=== PATIENT | female | born 1970 | race Caucasian/White ===

== ENCOUNTER 2024-10-18 13:50 | Emergency (ER) | payer OTHER, SELFPAY ==
[2024-10-18 13:52] VITALS: BP 121/80; PULSE 79; RESP 18; TEMP 36.6; O2SAT 97
--- NOTE | 2024-10-18 14:26 | ED_ITS ---
HPI - URI/Sore Throat General Chief Complaint: Upper Respiratory Infection Stated Complaint: migraine, congestion Time Seen by Provider: 10/18/24 14:26 Source: patient Mode of arrival: ambulatory Limitations: no limitations History of Present Illness HPI Narrative: 53-year-old female with a history of dyslipidemia, bipolar, migraines, chronic sinusitis presents to the ED with -- frontal headache since 5:00 a.m.. The patient has had nausea without any vomiting. The patient has photophobia. No phonophobia. This is similar to her usual headaches. -- Nasal congestion with mucopurulent nasal discharge. The patient received antibiotics 1 month ago. She received Augmentin. MD elicited complaint: other ( Headache, nasal contusion) Onset (ago): hour(s) ( 8 hours) Consistency: constant Severity: moderate Description of mucous: yellow Able to tolerate fluids by mouth: Yes Exacerbating factors: nothing Relieving factors: nothing Associated symptoms: denies other symptoms and nasal congestion Treatments prior to arrival: none Related Data Home Medications Medication Instructions Recorded Confirmed Last Taken Type clonazepam 0.5 mg tablet (Klonopin) 0.5 mg PO TID PRN anxiety 10/18/24 10/18/24 Unknown History clonazepam 1 mg tablet (Klonopin) 1 mg PO DAILY 10/18/24 10/18/24 Unknown H istory duloxetine 60 mg capsule,delayed 120 mg PO DAILY 10/18/24 10/18/24 Unknown History release estradiol 0.1 mg/24 hr semiweekly 1 patch transdermal 2XW 10/18/24 10/18/24 Unknown History transdermal patch (Vivelle-Dot) ezetimibe 10 mg tablet 10 mg PO DAILY 10/18/24 10/18/24 Unknown History lamotrigine 150 mg tablet 150 mg PO BID 10/18/24 10/18/24 Unknown History (Lamictal) pravastatin 40 mg tablet 40 mg PO DAILY 10/18/24 10/18/24 Unknown History topiramate 100 mg tablet (Topamax) 100 mg PO DAILY 10/18/24 10/18/24 Unknown History Allergies Allergy/AdvReac Type Severity Reaction Status Date / Time ciprofloxacin Allergy Intermediate Rash Verified 10/18/24 14:13 vancomycin Allergy Intermediate burning Verified 10/18/24 14:13 acetaminophen (From Vicodin) Allergy Mild Rash Verified 10/18/24 14:13 codeine Allergy Mild rash Verified 10/18/24 14:13 hydrocodone (From Vicodin) Allergy Mild Rash Verified 10/18/24 14:13 latex Allergy Mild Rash Verified 10/18/24 14:13 Review of Systems Review of Systems: All systems reviewed & are unremarkable except as noted in HPI and below Constitutional: Constitutional: Reports as per HPI and Reports no additional constitutional complaints Eyes: Eyes: Reports as per HPI and Reports no additional eye complaints ENT: Reports system reviewed and no additional complaints, except as documented, Reports as per HPI and Reports nasal congestion Cardiovascular: Cardiovascular: Reports as per HPI and Reports no additional cardiovascular complaints Respiratory: Respiratory: Reports as per HPI and Reports no additional respiratory complaints Gastrointestinal: Gastrointestinal: Reports as per HPI and Reports no additional gastrointestinal complaints Genitourinary: Genitourinary: Reports no additional female genitourinary complaints and Reports as per HPI Musculoskeletal: Musculoskeletal: Reports no additional musculoskeletal complaints and Reports as per HPI Integumentary/Breasts: Skin/Breast: Reports system reviewed and no additional complaints, except as docu and Reports as per HPI Neurologic: Reports system reviewed and no additional complaints, except as documented and Reports as per HPI Psychiatric: Psychiatric: Reports no additional psychiatric complaints and Reports as per HPI Endocrine: Endocrine: Reports no additional endocrine complaints and Reports as per HPI Hematologic/Lymphatic: Hematologic/Lymphatic: Reports no additional hematolo gic/lymphatic complaints and Reports as per HPI Allergic/Immunologic: Allergic/Immunologic: Reports no additional allergic/immunologic complaints and Reports as per HPI Exam Narrative: afebrile. Vitals are stable. Const: General: no acute distress Nutritional Appearance: well nourished Orientation/consciousness: patient oriented x3 Limitations: no limitations HENMT: Head: normal to inspection Ears: external ears normal Face/Nose/Sinus: Normal external nose present Face and sinus: normal facial exam Mouth: Yes Normal oral and palatal mucosa present Throat: posterior oropharynx normal Eyes: Pupils: Equal, round and reactive pupils present EOM: EOMs intact bilaterally Direct Ophthalmoscopy: no photophobia Neck: Neck: normal visual inspection, no lymphadenopathy and no meningeal signs Chest: Chest palpation & inspection: normal inspection of the chest Resp: Effort & Inspection: normal respiratory effort Auscultation: clear to auscultation bilaterally Cardio: Rate: regular rate Rhythm: regular rhythm GI: GI Palp: Yes Soft to palpation Auscultation: normal bowel sounds Other: Tenderness/rigidity /rebound : General: Yes no CVA tenderness Back/Spine/Pelvis: Back: no CVA tenderness Skin: General skin exam: normal color Rashes: no rashes Wounds: no wounds Neuro: General: patient oriented x3, moves all extremities, no meningeal signs, no focal motor deficits and CN's II-XI intact bilaterally Cranial nerves: Yes Nystagmus not present Speech: normal speech Gait exam (Neuro): Normal gait present Extrem: General: normal to inspection and no clubbing, cyanosis or edema Psych: Mental Status: mental status grossly normal Affect: normal affect Attitude: cooperative Course Course Emergency Course: frontal headache /migraine-- Improved with sumatriptan. Headache decreased from 10 to 4 sinusitis with mucopurulent nasal discharge and nasal congestion-- will treat with zithromax Vital Signs Vital signs: Vital Signs Temperature 36.6 C 10/18/24 13:52 Pulse Rate 79 10/18/24 13:52 Respiratory Rate 18 10/18/24 13:52 Blood Pressure 121/80 10/18/24 13:52 Pulse Oximetry 97 10/18/24 13:52 Oxygen Delivery Room Air 10/18/24 13:52 Temperature 36.6 C 10/18/24 13:52 Pulse Rate 79 10/18/24 13:52 Respiratory Rate 18 10/18/24 13:52 Blood Pressure 121/80 10/18/24 13:52 Pulse Oximetry 97 10/18/24 13:52 Oxygen Delivery Room Air 10/18/24 14:00 MDM - URI/Sore Throat MDM Narrative Medical decision making narrative: migraine sinusitis Differential Diagnosis Differential diagnosis: Likely upper respiratory infection and sinusitis Medical Records Attestation: I reviewed the patient's medical records. Lab Data Attestation: I reviewed the patient's lab results. Discharge Plan Discharge Clinical Impression: Sinusitis, Migraine Patient Disposition: Home Condition: Stable Instructions: Antibiotic Form, Sinusitis (ED), Migraine Headache (ED) Patient Language: Belarusian Prescriptions: New azithromycin [Zithromax] 250 mg tablet See Rx Instructions .ROUTE .COMPLEX Qty: 6 0RF Rx Instructions: For 250 mg dose pack: take 500 mg today (day 1), then 250 mg for 4 days (days 2-5) loratadine [Claritin] 10 mg tablet 10 mg PO DAILY Qty: 30 0RF No Action pravastatin 40 mg tablet 40 mg PO DAILY ezetimibe 10 mg tablet 10 mg PO DAILY duloxetine 60 mg capsule,delayed release(DR/EC) 120 mg PO DAILY lamotrigine [Lamictal] 150 mg tablet 150 mg PO BID clonazepam [Klonopin] 1 mg tablet 1 mg PO DAILY clonazepam [Klonopin] 0.5 mg tablet 0.5 mg PO TID PRN (Reason: anxiety) topiramate [Topamax] 100 mg tablet 100 mg PO DAILY estradiol [Vivelle-Dot] 0.1 mg/24 hr patch semiweekly 1 patch transdermal 2XW Patient Comments: change on wednesday and Rx Instructions: apply 1 patch for 3 days alternating with 1 patch for 4 days each week for 3 wks per 4-wk cycle Follow-up/Referrals: UNKNOWN,DOCTOR [Primary Care Provider] - Stand Alone Forms: Work/School Release IP Time of Disposition: 15:13
[2024-10-18] MEDS: SUMAtriptan SUCCINATE 6 MG/0.5 ML VIAL SUB-Q (14:45)
--- OUTSIDE RECORDS SUMMARY | 2024-10-18 15:11 | XMS_ITS | Encounter Summary ---
Author Organization [facility] Address [facility] [place] [address] Care Team Providers Care Glass Washer Name Role Phone Navi Wheeler MD Primary Care Provider Unava Qing Jensen PA-C Unavailable [phone] Lamonte Quezada MD Unavailable Unavailabl e Piper Sotomayor MD Unavailable + Gabe Hidalgo MD Primary Care Provider + [phone] Gabe Hidalgo MD Primary Care Provider + [phone] Wing Madden MD Primary Care Provider [phone] Cary Allen NP Primary Care Provider [phone] Encounter Details Date Type Department Care Team (Late st Contact Info) Description 05/23/2018 Abstract [facility] Neuro[facility] [address] [place] [phone] Villa Hopper MD [address] [place] [id number] Social History Tobacco Use Types Packs/Day Years Used Date Smoking Tobacco: Never Smokeless Tobacco: Never Comments Unknown Sex and Gender Information Value Date Recorded Sex Assigned at Not on file Legal Sex Female 10:45 PM CUTTING MACHINE TENDER HELPER Gender Identity Not on file Sexual Orientation Not on file documented as of this encounter Plan of Treatment Not on file documented as of this encounter Visit Diagnoses Not on filedocumented in this encounter Additional Health Concerns Infection Onset Date Last Indicated Resolved Time COVID-19 Rule Out 01/08/2020 01/08/2020 01/11/2020 7:30 PM CDT COVID-19 Rule Out 03/18/2020 03/18/2020 03/20/2020 6:41 PM CDT COVID-19 Rule Out 12/09/2020 12/09/2020 12/10/2020 1:42 PM CDT COVID-19 Rule Out 02/19/2021 02/19/2021 02/20/2021 12:12 AM CDT COVID-19 Rule Out 05/19/2022 05/19/2022 05/19/2022 11:26 AM CUTTING MACHINE TENDER HELPER COVID-19 Rule Out 05/19/2022 05/19/2022 05/20/2022 1:15 AM CUTTING MACHINE TENDER HELPER documented as of this encounter Care Teams Glass Washer Relationship Specialty Start Date End Date Navi Wheeler MD PCP - General FAMILY PRACTICE 03/04/18 12/01/20 Gabe Hidalgo MD [address] [place] [address] PCP - General FAMILY PRACTICE 12/05/20 07/27/22 Gabe Hidalgo MD [address] [place] [address] PCP - General FAMILY PRACTICE 12/02/20 12/04/20 Wing Madden MD [address] [place] [phone] PCP - General FAMILY PRACTICE 07/28/22 11/05/23 Cary Allen NP [address] [place] [address] PCP - General Nurse Practitioner Family 11/06/23 Qing Carrion PA-C PHYSICIAN DIVISION DIRECTOR 07/26/19 Lamonte Quezada MD [place] Python Engineer CARDIOVASCULAR DISEASE 07/02/20 Piper Sotomayor MD [address] [address] Consulting Physician Child and Adolescent Psychiatry 07/02/20 documented as of this encounter
--- OUTSIDE RECORDS SUMMARY | 2024-10-18 15:11 | XMS_ITS | Encounter Summary ---
Author Organization [facility] Address [address] [place] [address] Care Team Providers Care Grinder Set Up Operator Thread Name Role Phone Carrion, Qing Kelley PA-C Unavailable [phone] Lamonte Quezada MD Unavailable Unavailabl e Piper Sotomayor MD Unavailable + Wing Madden MD Primary Care Provider [phone] Cary Allen NP Primary Care Provider [phone] Encounter Details Date Type Department Care Team (Late st Contact Info) Description 12/02/2022 MyChart Message Enc [facility] - [facility] [address] [place] [address] [place], [facility] Provider Air Quality Message Social History Tobacco Use Types Packs/Day Years Used Date Smoking Tobacco: Never Smokeless Tobacco: Never Comments:non smoker Alcohol Use Standard Drinks/Week Comments No 0 (1 standard drink = 0.6 oz pur e alcohol) AUDIT-C Answer Date Recorded Frequency of Alcohol Consumption Not on file 08/30/2020 Average Number of Drinks Not on file 021 Q3: How often do you have si x or more drinks on one occasion? Never 08/30/2020 PHQ-2 Answer Date Recorded Patient Health Questionnaire-2 Score 0 09/25/2022 Comments No Sex and Gender Information Value Date Recorded Sex Assigned at Not on file Legal Sex Female 10:45 PM LIE DETECTOR OPERATOR Gender Identity Not on file Sexual Orientation Not on file Occupation Industry Job Start Date Job End Date [employer], worked at [employer], student Not on file Not on file Not on file documented as of this encounter Plan of Treatment Not on file documented as of this encounter Visit Diagnoses Not on filedocumented in this encounter Additional Health Concerns Assessment Noted Time PHQ-9 Depression Total Score: 0 07/16/19 22 2:44 PM LIE DETECTOR OPERATOR documented as of this encounter Care Teams Grinder Set Up Operator Thread Relationship Specialty Start Date End Date Wing Madden MD [address] [place] [phone] PCP - General FAMILY PRACTICE 07/28/22 11/05/23 Cary Allen NP [address] [place], [place] [phone] PCP - General Nurse Practitioner Family 11/06/23 Qing Carrion PA-C PHYSICIAN LOCKS TENDER 07/26/19 Lamonte Quezada MD [place] Stress Engineer CARDIOVASCULAR DISEASE 07/02/20 Piper Sotomayor MD [address] [id number] Consulting Physician Child and Adolescent Psychiatry 07/02/20 documented as of this encounter
--- OUTSIDE RECORDS SUMMARY | 2024-10-18 15:11 | XMS_ITS | Encounter Summary ---
Author Organization [facility] Address [facility] [place] [address] Care Team Providers Care Rib Knitter Name Role Phone Navi Wheeler MD Primary Care Provider Unava Qing Jensen PA-C Unavailable [phone] Lamonte Quezada MD Unavailable Unavailabl e Piper Sotomayor MD Unavailable + Gabe Hidalgo MD Primary Care Provider + [phone] Gabe Hidalgo MD Primary Care Provider + [phone] Wing Madden MD Primary Care Provider [phone] Cary Allen NP Primary Care Provider [phone] Encounter Details Date Type Department Care Team (Late st Contact Info) Description 05/11/2018 Abstract [facility] Neuro[facility] [address] [place] [phone] Villa Hopper MD [address] [place] [address] Social History Tobacco Use Types Packs/Day Years Used Date Smoking Tobacco: Never Assessed Comments Unknown Sex and Gender Information Value Date Recorded Sex Assigned at Not on file Legal Sex Female 10:45 PM WATER FILTRATION TECHNICIAN Gender Identity Not on file Sexual Orientation [...] Rule Out 05/19/2022 05/19/2022 05/19/2022 11:26 AM WATER FILTRATION TECHNICIAN COVID-19 Rule Out 05/19/2022 05/19/2022 05/20/2022 1:15 AM WATER FILTRATION TECHNICIAN documented as of this encounter Care Teams Rib Knitter Relationship Specialty Start Date End Date Navi Wheeler MD PCP - General FAMILY PRACTICE 03/04/18 12/01/20 Gabe Hidalgo MD [address] [place] [address] PCP - General FAMILY PRACTICE 12/05/20 07/27/22 Gabe Hidalgo MD [address] [place] [address] PCP - General FAMILY PRACTICE 12/02/20 12/04/20 Wing Madden MD [address] [place] [phone] PCP - General FAMILY PRACTICE 07/28/22 11/05/23 Cary Aleln NP [address] [place] [address] PCP - General Nurse Practitioner Family 11/06/23 Qing Carrion PA-C PHYSICIAN VIDEO GAME ANIMATOR 07/26/19 Lamonte Quezada MD [place] Senior Structural Engineer CARDIOVASCULAR DISEASE 07/02/20 Piper Sotomayor MD [address] [address] Consulting Physician Child and Adolescent Psychiatry 07/02/20 documented as of this encounter
--- OUTSIDE RECORDS SUMMARY | 2024-10-18 15:11 | XMS_ITS | Encounter Summary ---
Author Organization [facility] Address [facility] [place] [address] Care Team Providers Care Diesel Technology Instructor Name Role Phone Navi Wheeler MD Primary Care Provider Unava Qing Jensen PA-C Unavailable [phone] Lamonte Quezada MD Unavailable Unavailabl e Piper Sotomayor MD Unavailable + Gabe Hidalgo MD Primary Care Provider + [phone] Gabe Hidalgo MD Primary Care Provider + [phone] Wing Madden MD Primary Care Provider [phone] Cary Allen NP Primary Care Provider [phone] Encounter Details Date Type Department Care Team (Late st Contact Info) Description 08/21/2017 Abstract [facility] [address] [place] [address] , Generic Conversion, Social History Tobacco Use Types Packs/Day Years Used Date Smoking Tobacco: Never Assessed Comments Unknown Sex and Gender Information Value Date Recorded Sex Assigned at Not on file Legal Sex Female 10:45 PM LEAK GANG SUPERVISOR Gender Identity Not on file Sexual Orientation [...] Rule Out 05/19/2022 05/19/2022 05/19/2022 11:26 AM LEAK GANG SUPERVISOR COVID-19 Rule Out 05/19/2022 05/19/2022 05/20/2022 1:15 AM LEAK GANG SUPERVISOR documented as of this encounter Care Teams Diesel Technology Instructor Relationship Specialty Start Date End Date Navi Wheeler MD PCP - General FAMILY PRACTICE 03/04/18 12/01/20 Gabe Hidalgo MD [address] [place] [address] PCP - General FAMILY PRACTICE 12/05/20 07/27/22 Gabe Hidalgo MD [address] [place] [address] PCP - General FAMILY PRACTICE 12/02/20 12/04/20 Wing Madden MD [address] [place] [phone] PCP - General FAMILY PRACTICE 07/28/22 11/05/23 Cary Allen GUM MACHINE FILLER [address] [place] [address] PCP - General Nurse Practitioner Family 11/06/23 Qing Carrion PA-C PHYSICIAN HOP GROWER 07/26/19 Lamonte Quezada MD [place] Neurocritical Care Physician CARDIOVASCULAR DISEASE 07/02/20 Piper Sotomayor MD [address] [address] Consulting Physician Child and Adolescent Psychiatry 07/02/20 documented as of this encounter
--- OUTSIDE RECORDS SUMMARY | 2024-10-18 15:11 | XMS_ITS | Encounter Summary ---
Author Organization [facility] Address [address] [place] [address] Care Team Providers Care Croze Machine Operator Name Role Phone CarrionQing le DARIELA Unavailable [phone] Lamonte Quezada MD Unavailable Unavailabl e Piper Sotomayor MD Unavailable + Wing Madden MD Primary Care Provider [phone] Cary Allen NP Primary Care Provider [phone] Encounter Details Date Type Department Care Team (Late st Contact Info) Description 12/31/2022 Abstract [facility] [address] [place] [address] Lamonte Quezada MD Social History Tobacco Use Types Packs/Day Years Used Date Smoking Tobacco: Never Smokeless Tobacco: Never Tobacco Cessation:Counseling Given: Not Answered Comments:non smoker Alcohol Use Standard Drinks/Week Comments [...] on file Legal Sex Female 10:45 PM ARTILLERY METEOROLOGICAL MAN Gender Identity Not on file Sexual Orientation Not on file 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 Industry Job 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 Date Job End 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, 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 Not on file Not on file Not on file documented as of this encounter Plan of Treatment Not on file documented as of this encounter Visit Diagnoses Not on filedocumented in this encounter Additional Health Concerns Assessment Noted Time PHQ-9 Depression Total Score: 0 07/16/19 22 2:44 PM ARTILLERY METEOROLOGICAL MAN documented as of this encounter Care Teams Croze Machine Operator Relationship Specialty Start Date End Date Wing Madden MD [address] [place] [address] PCP - General FAMILY PRACTICE 07/28/22 11/05/23 [place] [address] [place] [id number] PCP - General Nurse Practitioner Family 11/06/23 Qing Carroin PA-C PHYSICIAN NURSERY TECHNICIAN 07/26/19 Lamonte Quezada MD [place] Live Truck Technician CARDIOVASCULAR DISEASE 07/02/20 Piper Sotomayor MD [address] [phone] Consulting Physician Child and Adolescent Psychiatry 07/02/20 documented as of this encounter
--- OUTSIDE RECORDS SUMMARY | 2024-10-18 15:11 | XMS_ITS | Referral Summary ---
Author Organization [facility] Address [address] [place] [id number] Care Team Providers Care Vigoureux Printer Name Role Phone Chen Thomason MD Primary Care Provider [phone] Allergies Active Allergy Reactions Criticality Noted Date Comments Ciprofloxacin Rash Medium 03/13/2020 Codeine Rash Medium 03/26/2017 Latex Rash Medium 04/20/2016 Metaxalone Unknown 10/18/2006 Nitrofurantoin Itching Medium 12/25/2019 Sulfa (Sulfonamide Antibiotics) Rash Medium 10/18/2006 Vancomycin Unknown,Other (See comments) Low 04/11/2012 Siren like veins were burning Venom-Honey Bee Anaphylaxis High 11/25/2023 Medications albuterol HFA (PROVENTIL HFA,VENTOLIN HFA,PROAIR HFA) 90 mcg/actuation inhaler 2 puffs every 6 (six) hours as needed 1 Active cholecalciferol (VITAMIN D-3) 2000 unit tablet Take 1 tablet (2,000 Units total) by mouth Active clonazePAM (KlonoPIN) 0.5 mg tablet Take 1 tablet (0.5 mg total) by mouth every morning [address] (CYMBALTA) 30 mg capsule Take 1 capsule (30 mg total) by mouth every morning Active DULoxetine DR (CYMBALTA) 60 mg capsule Take 1 capsule (60 mg total) by mouth every morning 1 Active EPINEPHrine 0.3 mg/0.3 mL auto-injection syringe Inject 0.3 mL (0.3 mg total) into the muscle as instructed as needed 1 Active estradioL (VIVELLE-DOT) 0.1 mg/[address] ONE PATCH ONTO THE SKIN TWICE A WEEK 1 Active estradioL (ESTRACE) 0.01 % (0.1 mg/gram) vaginal cream Apply a pea-sized amount around the vagina. For the first 2 weeks, apply every night. Thereafter apply 3 times a week 1 Active ezetimibe (ZETIA) 10 mg tablet Take 1 tablet (10 mg total) by mouth daily 1 Active lamoTRIgine (LaMICtal) 150 mg tablet Take 1 tablet (150 mg total) by mouth 2 (two) times a day 1 Active levocetirizine (XYZAL) 5 mg tablet TAKE ONE TABLET BY MOUTH UP TO THREE TIMES DAILY NEEDED FOR FOR HIVES - NEED FOLLOW UP WITH PRESCRIBING DOCTOR PRIOR TO FUTHER REFILLS 2 Active pravastatin (PRAVACHOL) 40 mg tablet Take 1 tablet (40 mg total) by mouth daily 1 Active rizatriptan (MAXALT) 10 mg tablet take 1 tablet by mouth at onset of migraine. May repeat in 2 hours if needed 4 Active topiramate (TOPAMAX) 100 mg tablet Take 1 tablet twice a day by oral route. 4 Active topiramate (TOPAMAX) 50 mg tablet Take 2 tablets (100 mg total) by mouth nightly 1 Active Active Problems No known active problems Social History Tobacco Use Types Packs/Day Years Used Date Smoking Tobacco: Never Smokeless Tobacco: Never Tobacco Cessation:Counseling Given: Not Answered Personal Safety Answer Date Recorded Getting School Help Needed Not on file 08/12 Comments No Sex and Gender Information Value Date Recorded Sex Assigned at Not on file Legal Sex Female 10:48 AM WARP HANGER Gender Identity Not on file Sexual Orientation Not on file Last Filed Vital Signs Vital Sign Reading Time Taken Comments Blood Pressure 120/73 12/21/2023 1:06 PM CDT Pulse - - Temperature - - Respiratory Rate - - Oxygen Saturation - - Inhaled Oxygen Concentration - - Weight 89.9 kg (198 lb 3.2 oz) 12/21/2023 1:06 P M CDT Height 162.6 cm (5' 4 ) 12/21/2023 1:06 PM CDT Body Mass Index 34.02 12/21/2023 1:06 PM CDT Plan of Treatment Not on file Insurance [facility] Care Teams Vigoureux Printer Relationship Specialty Start Date End Date Chen Thomason MD [address] [address] PCP - General Obstetrics and Gynecology 08/13/23
--- OUTSIDE RECORDS SUMMARY | 2024-10-18 15:11 | XMS_ITS | Encounter Summary ---
Author Organization [facility] Address [facility] [place] [address] Care Team Providers Care Dog Hair Clipper Name Role Phone Qing Carrion PA-C Unavailable [phone] Lamonte Quezada MD Unavailable Unavailabl e Piper Sotomayor MD Unavailable + Wing Madden MD Primary Care Provider [phone] Cary Allen NP Primary Care Provider [phone] Encounter Details Date Type Department Care Team (Late st Contact Info) Description 11/03/2023 Jini Message Enc [facility] Medical [address] [address] Dick, [facility] Provider 11/09/23 Appointment Cancelled Social History Tobacco Use Types Packs/Day Years Used Date Smoking Tobacco: Never Passive Smoke Exposure: Never Smokeless Tobacco: Never Comments:non smoker Alcohol [...] Date Recorded Patient Health Questionnaire-2 Score 0 06/15/2023 Comments No Sex and Gender Information Value Date Recorded Sex Assigned at Not on file Legal Sex Female 10:45 PM HANDBAG FINISHER Gender Identity Not on file Sexual Orientation Not on file Occupation Industry Job 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 Job End 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, 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 Not on file Not on file Not on file documented as of this encounter Plan of Treatment Not on file documented as of this encounter Visit Diagnoses Not on filedocumented in this encounter Additional Health Concerns Assessment Noted Time PHQ-9 Depression Total Score: 0 07/16/19 22 2:44 PM HANDBAG FINISHER documented as of this encounter Care Teams Dog Hair Clipper Relationship Specialty Start Date End Date Wing Madden MD [address] [place] [id number] PCP - General FAMILY PRACTICE 07/28/22 11/05/23 Cary Allen NP [address] [place] [address] PCP - General Nurse Practitioner Family 11/06/23 Qing Carrion PA-C PHYSICIAN BED PLACEMENT COORDINATOR 07/26/19 Lamonte Quezada MD [place] Front Desk Admin CARDIOVASCULAR DISEASE 07/02/20 Piper Sotomayor MD [address] [address] Consulting Physician Child and Adolescent Psychiatry 07/02/20 documented as of this encounter
--- OUTSIDE RECORDS SUMMARY | 2024-10-18 15:11 | XMS_ITS | Encounter Summary ---
Author Organization [facility] Address [facility] [place] [address] Care Team Providers Care International Flight Attendant Name Role Phone Qing Carrion PA-C Unavailable [phone] Lamonte Quezada MD Unavailable Unavailabl e Piper Sotomayor MD Unavailable + Wing Madden MD Primary Care Provider [phone] Cary Allen NP Primary Care Provider [phone] Encounter Details Date Type Department Care Team (Late st Contact Info) Description 10/22/2022 [employer] Message Enc [facility] Medical [address] [address] [place], [facility] Provider Need to reschedule appt on 02/18/23 Social History Tobacco Use Types Packs/Day Years [...] on file Legal Sex Female 10:45 PM PROGRAM MANAGER Gender Identity Not on file Sexual Orientation Not on file Occupation Industry Job Start Date Job End Date 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 No / Unsure 09/30/2022 9:47 AM CDT documented as of this encounter Plan of Treatment Not on file documented as of this encounter Visit Diagnoses Not on filedocumented in this encounter Additional Health Concerns Assessment Noted Time PHQ-9 Depression Total Score: 0 07/16/19 22 2:44 PM PROGRAM MANAGER documented as of this encounter Care Teams International Flight Attendant Relationship Specialty Start Date End Date Wing Madden MD [address] [place] [phone] PCP - General FAMILY PRACTICE 07/28/22 11/05/23 [place] [address] [place] [id number] PCP - General Nurse Practitioner Family 11/06/23 Qing Carrion PA-C PHYSICIAN TRAFFIC CONTROL OPERATOR 07/26/19 Lamonte Quezada MD [place] Ski Patrol Director CARDIOVASCULAR DISEASE 07/02/20 Piper Sotomayor MD [address] [id number] Consulting Physician Child and Adolescent Psychiatry 07/02/20 documented as of this encounter
--- OUTSIDE RECORDS SUMMARY | 2024-10-18 15:11 | XMS_ITS | Encounter Summary ---
Author Organization [facility] Address [address] [place] [address] Care Team Providers Care Vinyl Installer Name Role Phone Navi Wheeler MD Primary Care Provider Unava Qing Jensen PA-C Unavailable [phone] Lamonte Quezada MD Unavailable Unavailabl e Piper Sotomayor MD Unavailable + Gabe Hidalgo MD Primary Care Provider + [phone] Gabe Hidalgo MD Primary Care Provider [phone] Wing Madden MD Primary Care Provider [phone] Cary Allen NP Primary Care Provider [phone] Encounter Details Date Type Department Care Team (Late st Contact Info) Description 04/24/2020 [facility] [address] [place] [phone] Lamonte Quezada MD Social History Tobacco Use Types Packs/Day Years Used Date Smoking Tobacco: Never Smokeless Tobacco: Never Comments:non smoker Alcohol Use Standard Drinks/Week Comments No 0 (1 standard drink = 0.6 oz pur e alcohol) AUDIT-C Answer Date Recorded Frequency of Alcohol Consumption Never 12/26/2018 Average Number of Drinks Not on file 019 Frequency of Binge Drinking Not on file 12/06 PHQ-2 Answer Date Recorded PHQ-2 Score 0 10/26/2019 Comments No Sex and Gender Information Value Date Recorded Sex Assigned at Not on file Legal Sex Female 10:45 PM ASBESTOS SHINGLE ROOFER Gender Identity Not on file Sexual Orientation Not on file 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 No / Unsure 04/25/2020 10:37 AM ASBESTOS SHINGLE ROOFER documented as of this encounter Plan of Treatment Not on file documented as of this encounter Visit Diagnoses Not on filedocumented in this encounter Additional Health Concerns Infection Onset Date Last Indicated Resolved Time COVID-19 Rule Out 12/09/2020 12/09/2020 12/10/2020 1:42 PM CDT COVID-19 Rule Out 02/19/2021 02/19/2021 02/20/2021 12:12 AM CDT COVID-19 Rule Out 05/19/2022 05/19/2022 05/19/2022 11:26 AM ASBESTOS SHINGLE ROOFER COVID-19 Rule Out 05/19/2022 05/19/2022 05/20/2022 1:15 AM ASBESTOS SHINGLE ROOFER documented as of this encounter Care Teams Vinyl Installer Relationship Specialty Start Date End Date Navi Wheeler MD PCP - General FAMILY PRACTICE 03/04/18 12/01/20 [facility] [place] [address] PCP - General FAMILY PRACTICE 12/05/20 07/27/22 Gabe Hidalgo MD [address] [facility] [place], [place] [id number] PCP - General FAMILY PRACTICE 12/02/20 12/04/20 Wing Madden MD [address] [place] [phone] PCP - General FAMILY PRACTICE 07/28/22 11/05/23 Cary Allen PROCUREMENT SERVICES MANAGER [address] [place] [address] PCP - General Nurse Practitioner Family 11/06/23 Qing Carrion PA-C PHYSICIAN HOT FRAME TENDER 07/26/19 Lamnote Quezada MD Lily Engineering Analyst CARDIOVASCULAR DISEASE 07/02/20 Piper Sotomayor MD [address] [address] Consulting Physician Child and Adolescent Psychiatry 07/02/20 documented as of this encounter
--- OUTSIDE RECORDS SUMMARY | 2024-10-18 15:11 | XMS_ITS | Clinical Summary ---
Author Organization [facility] Address [address] [place] [phone] Care Team Providers Care Industrial Sales Manager Name Role Phone Chen Thomason MD Primary Care Provider [phone] Allergies Active Allergy Reactions Criticality Noted Date Comments Ciprofloxacin Rash Medium 03/13/2020 Codeine Rash Medium 03/26/2017 Latex Rash Medium 04/20/2016 Metaxalone Unknown 10/18/2006 Nitrofurantoin Itching Medium 12/25/2019 Sulfa (Sulfonamide Antibiotics) Rash Medium 10/18/2006 Vancomycin Unknown,Other (See comments) Low 04/11/2012 [place] like veins were burning Venom-Honey Bee Anaphylaxis [...] Active Active Problems No known active problems Surgical History Surgery Date Site/Laterality Comments HYSTERECTOMY TUBAL LIGATION BLADDER SUSPENSION BLADDER SURGERY prolapse x3, bladder mesh IMPLANTATION / PLACEMENT EPI DURAL NEUROSTIMULATOR ELECTRODES bladder Medical History Medical History Date Comments Bacterial vaginosis Depression Migraine Hypertension Menopause ovarian failure Osteoporosis Rectocele Urinary incontinence Asthma Family History Medical History Relation Name Comments Alcohol abuse Father Hypertension Father Osteoarthritis Maternal Grandmother Stroke Maternal Grandmother Arthritis Mother Depression Mother Drug abuse Mother Hyperlipidemia Mother Hypertension Mother Mental illness Mother Miscarriages / Stillbirths Mother Osteoarthritis Mother Uterine cancer Mother Relation Name Status Comments Father Maternal Grandmother Mother Social History Tobacco Use Types Packs/Day Years Used Date Smoking Tobacco: Never Smokeless Tobacco: Never Tobacco Cessation:Counseling Given: Not Answered Personal Safety Answer Date Recorded Getting School Help Needed Not on file 08/12 Comments No Sex and Gender Information Value Date Recorded Sex Assigned at Not on file Legal Sex Female 10:48 AM BUILDING MATERIALS SALES 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 Gender Identity Not on file Sexual Orientation Not on file Obstetrics History Para Term AB IAB SAB Ectopic Multiple Livin g Live Births 5 5 5 Date Outcome GA Total Labor Labor/2nd/3rd Weight Sex Type Anes PTL Radha A1 A5 Name Clin Para Vaginal Para Vaginal Para Vaginal Para Vaginal Para Vaginal Last Filed Vital Signs Vital Sign Reading [...] 12/21/2023 1:06 PM CDT Plan of Treatment Health Maintenance Due Date Last Done Comments Colon Cancer Screening-Colonoscopy 1968 Depression Screening 1968 Hepatitis C Screening 1968 Hepatitis B Screening 1986 Regular Well Visit/Exam 18-64 1986 Pneumococcal vaccine <65 (2 of 2 - PCV) 04/09/2015 04/09/2014 Zoster Vaccine (1 of 2) 2018 Influenza Vaccine (#1) 2024 , 03/11/2020, 01/26/2020, Additional history exists Breast Cancer Screening-Mammogram 11/29/2024 11/30/2023, 11/30/2023, 08/06/2022, Additional history exists DTaP/Tdap/Td Vaccine (2 - Td or Tdap) 09/24/2029 09/25/2019, 04/09/2019 Insurance [facility] Care Teams Industrial Sales Manager Relationship Specialty Start Date End Date Chen Thomason MD [address] [address] PCP - General Obstetrics and Gynecology 08/13/23
--- OUTSIDE RECORDS SUMMARY | 2024-10-18 15:11 | XMS_ITS | Clinical Summary ---
Author Organization [facility] Address [address] [place] [address] Care Team Providers Care Hoop Bender Tank Name Role Phone MuraliIvanzehra Small PA-C Unavailable [phone] Lamonte Quezada MD Unavailable Unavailabl e Piper Sotomayor MD Unavailable + Cary Perez NP Primary Care Provider [phone] Allergies Active Allergy Reactions Criticality Noted Date Comments Bee Venom Anaphylaxis High 11/25/2023 Ciprofloxacin Rash Low 11/28/2020 Codeine Rash Low 01/10/2021 Hydrocodone-Acetaminophe n Rash Low 04/11/2012 Latex Rash Low 04/21/2016 Morphine Rash Low 04/11/2012 Nitrofurantoin Itching Medium 12/25/2019 Sulfa Antibiotics Rash Low 04/11/2012 Vancomycin Other (see comment) Low 04/11/2012 [place] like veins were burning Medications conjugated estrogens 0.625 MG/GM vaginal creamIndications:b uild up vaginal oconnor Place vaginally daily. Indications: build up vaginal o[place] Active clonazePAM 0.5 MG tablet TAKE ONE TABLET BY MOUTH AT BEDTIME AND ONE TABLET NEEDED DAILY Active DULoxetine 60 MG capsule Active Cholecalciferol 50 MCG (1999) Tab Take 2,000 Units by mouth. Active ALLERGY RELIEF 180 MG tablet Active Levocetirizine Dihydrochloride 5 MG Tab 3 (three) times daily. Active lamoTRIgine (LAMICTAL) 150 MG tablet Active DULoxetine (CYMBALTA) 30 MG capsule Take 1 capsule (30 mg total) by mouth every morning. 023 Active magnesium oxide (MAG-OX) 400 MG tablet TAKE ONE TABLET BY MOUTH DAILY 30 tablet 11 023 Active budesonide-formote rol (SYMBICORT) 80-4.5 MCG/ACT inhalerIndications :Shortness of breath,Moderate persistent asthma with acute exacerbation (HHS/HCC) Inhale 2 puffs into the lungs 2 (two) times daily. 10.2 g 2 024 Active magnesium oxide (MAG-OX) 400 (240 Mg) MG tablet take 1 tablet by mouth daily 90 tablet 3 024 Active fluconazole (DIFLUCAN) 150 MG tabletIndications: Antibiotic-induced yeast infection TAKE 1 TABLET BY MOUTH 1 TIME FOR 1 DOSE. MAY REPEAT IN 72 HOURS 2 tablet 024 Active predniSONE 50 MG tabletIndications: Anaphylaxis TAKE 1 TABLET(50 MG) BY MOUTH DAILY 8 tablet 024 Active doxycycline hyclate (VIBRAMYCIN) 100 MG capsuleIndications :Acute non-recurrent frontal sinusitis TAKE 1 CAPSULE(100 MG) BY MOUTH TWICE DAILY FOR 10 DAYS 20 capsule 024 Active carvedilol (COREG) 3.125 MG tablet take 1 tablet by mouth twice daily 180 tablet 3 024 Active fluconazole (DIFLUCAN) 150 MG tabletIndications: Oral thrush Take 1 tablet by mouth once for 1 dose. May repeat in 72 hours. 2 tablet 024 Active albuterol (PROVENTIL) (2.5 MG/3ML) 0.083% nebulizer solutionIndication s:Asthma, unspecified asthma severity, unspecified whether complicated, unspecified whether persistent (HHS/HCC) Take 3 mLs (2.5 mg total) by nebulization every 4 (four) hours as needed for Wheezing. 360 mL 025 Active EPINEPHrine 0.3 MG/0.3ML injectionIndicatio ns:Asthma, unspecified asthma severity, unspecified whether complicated, unspecified whether persistent (HHS/HCC) Inject 0.3 mLs (0.3 mg total) into the muscle as needed for Anaphylaxis. 2 each 025 Active estradiol (VIVELLE-DOT) 0.1 MG/24HR patchIndications:M enopause APPLY 1 PATCH TOPICALLY TO THE SKIN 2 TIMES A WEEK 8 patch Active ezetimibe (ZETIA) 10 MG tabletIndications: Mixed hyperlipidemia Take 1 tablet (10 mg total) by mouth nightly at bedtime. 90 tablet 3 025 Active pantoprazole EC (PROTONIX) 40 MG tabletIndications: Gastroesophageal reflux disease with esophagitis without hemorrhage Take 1 tablet (40 mg total) by mouth 2 (two) times daily. 60 tablet 025 Active pravastatin (PRAVACHOL) 40 MG tabletIndications: Mixed hyperlipidemia Take 1 tablet (40 mg total) by mouth daily. 90 tablet 1 025 Active rizatriptan (MAXALT) 10 MG tabletIndications: Migraine without aura and without status migrainosus, not intractable Take 1 tablet (10 mg total) by mouth as needed. 30 tablet 025 Active topiramate (TOPAMAX) 100 MG tabletIndications: Migraine without aura and without status migrainosus, not intractable TAKE 1 AND 1/2 TABLETS BY MOUTH EVERY EVENING 135 tablet 025 Active albuterol sulfate HFA 108 (90 Base) MCG/ACT inhalerIndications :Asthma, unspecified asthma severity, unspecified whether complicated, unspecified whether persistent ([facility]) Inhale 1-2 puffs into the lungs every 6 (six) hours as needed. FOR WHEEZING 6.7 g 2 Active albuterol (PROVENTIL) (2.5 MG/3ML) 0.083% nebulizer solution USE 1 VIAL IN NEBULIZER DIRECTED FOUR TIMES A DAY NEEDED 023 2024 Discontinued(R eorder) topiramate (TOPAMAX) 100 MG tabletIndications: Migraine without aura and without status migrainosus, not intractable TAKE 1 AND 1/2 TABLETS BY MOUTH EVERY EVENING 135 tablet 024 2024 Discontinued(R eorder) EPINEPHrine 0.3 MG/0.3ML injection Inject 0.3 mLs (0.3 mg total) into the muscle as needed for Anaphylaxis. 2 each 024 2024 Discontinued(R eorder) rizatriptan (MAXALT) 10 MG tablet Take 1 tablet (10 mg total) by mouth as needed. 024 2024 Discontinued(R eorder) ezetimibe (ZETIA) 10 MG tablet Take 1 tablet (10 mg total) by mouth nightly at bedtime. 90 tablet 3 024 2024 Discontinued(R eorder) pantoprazole EC (PROTONIX) 40 MG tabletIndications: Gastroesophageal reflux disease with esophagitis without hemorrhage TAKE 1 TABLET(40 MG) BY MOUTH TWICE DAILY 180 tablet 1 024 2024 Discontinued pravastatin (PRAVACHOL) 40 MG tabletIndications: Mixed hyperlipidemia TAKE 1 TABLET(40 MG) BY MOUTH DAILY 90 tablet 1 025 2024 Discontinued(R eorder) estradiol (VIVELLE-DOT) 0.1 MG/24HR patchIndications:M enopause APPLY 1 PATCH TOPICALLY TO THE SKIN 2 TIMES A WEEK 8 patch 025 2024 Discontinued albuterol sulfate HFA 108 (90 Base) MCG/ACT inhalerIndications :Asthma, unspecified asthma severity, unspecified whether complicated, unspecified whether persistent (HHS/HCC) INHALE 2 PUFFS INTO THE LUNGS EVERY 6 HOURS NEEDED FOR WHEEZING 6.7 g 2 025 2024 Discontinued(R eorder) estradiol (VIVELLE-DOT) 0.1 MG/24HR patchIndications:M enopause APPLY 1 PATCH TOPICALLY TO THE SKIN 2 TIMES A WEEK 8 patch 025 2024 Discontinued(R eorder) pantoprazole EC (PROTONIX) 40 MG tabletIndications: Gastroesophageal reflux disease with esophagitis without hemorrhage TAKE 1 TABLET BY MOUTH TWICE DAILY 60 tablet 025 2024 Discontinued(R eorder) albuterol sulfate HFA 108 (90 Base) MCG/ACT inhalerIndications :Asthma, unspecified asthma severity, unspecified whether complicated, unspecified whether persistent (HHS/HCC) Inhale 17 puffs into the lungs every 6 (six) hours as needed. FOR WHEEZING 6.7 g 2 025 2024 Discontinued(R eorder) Active Problems Problem Noted Date Diagnosed Date Bipolar depression ([facility]) 07/16/2021 S/P total hysterectomy 07/16/2021 Prediabetes 12/02/2020 Vasomotor symptoms due to menopause 12/02/2020 Seasonal allergic rhinitis due to other allergic trigger 02/05/2020 Hypersomnia 03/01/2018 Snoring 02/17/2018 Migraine without aura and wi thout status migrainosus, not intractable 03/04/2012 Moderate persistent asthma without complication ([facility]) 01/11/2012 Esophageal reflux 01/11/2012 Mixed hyperlipidemia 01/06/2012 Resolved Problems Problem Noted Date Diagnosed Date Resolved Date Snoring 12/02/2020 12/02/2020 Fatigue, unspecified type 10/16/2020 Other urinary incontinence 08/16/2020 0 07/16/2021 Dyslipidemia 08/16/2020 12/02/2020 Chest pain 04/25/2020 12/02/2020 Tachycardia 04/25/2020 12/02/2020 Tardive dyskinesia 03/04/2020 Encounter for screening mamm ogram for breast cancer 02/05/2020 02/16/2020 Acute cystitis without hematuria 02/05/2020 12/02/2020 Yeast infection 01/10/2020 12/02/2020 Restless legs syndrome 12/22/201909/03 Hyperglycemia 12/22/2019 12/02/2020 Menopause 09/25/2019 07/16/2021 Need for diphtheria-tetanus- pertussis (Tdap) vaccine 09/25/2019 02/16/2020 Routine medical exam 09/25/2019 020 Screening for colon cancer 01/09/2019 0 12/02/2020 Overview (01/09/2019): Added automatically from request for surgery [id number] Immunization due 03/23/2018 02/16/2020 Encounter to discuss test results 03/23/2018 12/02/2020 Numbness 03/22/2018 12/02/2020 Obstructive sleep apnea 03/01/201811/06 Overview (04/12/2018): But normal home sleep study 03/2018 Gasping for breath 03/01/2018 Unrefreshed by sleep 03/01/2018 021 Tremor 02/17/2018 12/02/2020 Acute urinary retention 11/13/201611/06 Metatarsalgia 10/29/2016 07/16/2021 Pain from implanted hardware 05/05/2016 12/02/2020 Dysuria 04/21/2016 12/02/2020 Edema, leg 07/18/2015 12/02/2020 Acute recurrent maxillary sinusitis 01/02/2013 12/02/2020 Rectocele 08/15/2012 12/02/2020 Depression 05/16/2012 07/16/2021 High risk medication use 05/16/2012 Bunion 04/11/2012 12/02/2020 Overview (03/16/2019): Description: R 1st MTP jt Hammer toe 04/11/2012 12/02/2020 Overview (03/16/2019): Description: R foot Herpes simplex 01/11/2012 12/02/2020 Encounters Date Type Department Care Team Description 10/02/[address] [phone] Cary Perez, MORRIS Medication Problem 10/02/[address] [phone] Cary Perez NP Refill Request from Last 3 Months Immunizations Immunization Administration Dates Next Due AFLURIA QUAD >36 MONTHS (MUL TI-DOSE VIAL) 03/08/2019 Fluzone 6 Months+ Quad (0.5 mL Prefilled Syringe) 04/15/2021,03/11/2020 Influenza (Generic) 03/16/2016,03/14/2013,2011 Influenza Adult (Generic) 03/23/2018,,03/16/2016,2014,04/09/2014 Pneumococcal (Pneumovax 23) 04/09/2014, 4 Pneumovax 04/09/2014 Tdap (Boostrix) 09/25/2019 Tdap (Historical Only-select from magnify glass) 09/25/2019 Family History Medical History Relation Comments Heart Attack Father Heart Disease Maternal Grandmother Hypertension Mother Relation Status Comments Brother Alive Father Maternal Grandfather Maternal Grandmother Mother Paternal Grandfather Paternal Grandmother Social History Tobacco Use Types Packs/Day Years Used Date Smoking Tobacco: Never Passive Smoke Exposure: Never Smokeless Tobacco: Never Tobacco Cessation:Counseling Given: [...] Answer Date Recorded Patient Health Questionnaire-2 Score 1 11/25/2023 Comments No Sex and Gender Information Value Date Recorded Sex Assigned at Not on file Legal Sex Female 10:45 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 TECHNICIAN Gender Identity Not on file Sexual Orientation Not on file Occupation Industry Job Start Date Job End Date [employer], 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 [employer] Not on file Not on file Not on file Last Filed Vital Signs Vital Sign Reading Time Taken Comments Blood Pressure 122/76 01/27/2024 7:31 AM CDT Pulse 67 01/27/2024 7:31 AM CDT Temperature 36.7 C (98 F) 01/27/2024 7:31 AM CDT Respiratory Rate 18 01/27/2024 7:31 AM CDT Oxygen Saturation 99% 01/27/2024 7:31 AM CDT Inhaled Oxygen Concentration - - Weight 89.9 kg (198 lb 1.6 oz) 01/27/2024 7:31 A M CDT Height 158.8 cm (5' 2.5 ) 11/25/2023 8:04 AM CDT Body Mass Index 35.66 11/25/2023 8:04 AM CDT Plan of Treatment Health Maintenance Due Date Last Done Comments Hepatitis C 1986 Hepatitis B Vaccines (1 of 3 - 19+ 3-dose series) 12/24/1987 Zoster Vaccines (1 of 2) 2018 Annual Physical 07/16/2022 07/16/2021 COVID-19 Vaccine ( - season) 2024 PHQ-2 (Physician [place]) 06/07/2024 11/25/2023 Mammogram Screening 11/29/2025 11/30/2023, 08/06/2022, 04/04/2021, Additional history exists Colorectal Cancer Screening Colonoscopy (10 Years) 01/11/2029 01/11/2019 DTaP, Tdap and Td Vaccines (3 - Td or Tdap) 09/24/2029 09/25/2019, 09/25/2019, 04/09/2019 Pneumococcal Vaccine: 50+ Years Completed 12/27/2023, 04/09/2014, 04/09/2014, Additional history exists Meningococcal B Vaccine Aged Out No l onger eligible based on patient's age to complete this topic Meningococcal Vaccine Aged Out No jess anjel eligible based on patient's age to complete this topic RSV Immunizations Under 20 Months Aged Out No longer eligible based on patient's age to complete this topic Medical Devices Implanted Type Area Medical Language Specialist Device Identifier Shelf Expiration Date Model / Serial / Lot Mesh Mesh Description:bladder Screw Screw Description:Left foot Neurostimulator Medtronic - [id number] Implanted:Qty: 1 on 08/14/2019 by Dong Banuelos MD at [facility] N/A: Back [employer] 08/18/2020 [id number] / [id number] / [id number] Description:verified by Lead Sns Medtronic Std - [id number] Implanted:Qty: 1 on 08/14/2019 by Dong Banuelos MD at [facility] N/A: Back [employer] 03/09/2023 [id number] / / [id number] Description:VERIFIED BY Procedures Procedure Name Priority Date/Time Associated Diagnosis Comments MG SCREENING W NEY JAMI DIGI Routine 11/30/2023 8:23 AM CDT Encounter for screening mammogram for breast cancer COLONOSCOPY 01/11/2019 1:26 PM CDT from Last 3 Months or Most Recently Relevant to Health Maintenance Results * MG SCREENING W NEY JAMI DIGI (11/30/2023 8:23 AM CDT) Anatomical Region Laterality Modality Breast Bilateral Mammography 11/30/2023 10:1 2 AM CDT Impressions 11/30/2023 10:16 AM CDT IMPRESSION: No interval features to suggest malignancy. In the absence of clinical symptoms, return for annual screening mammogram due in 1 year. RECOMMENDATION: Routine Screening, Bilateral in 1 year ASSESSMENT: ACR BI-RADS 2 - BENIGN FINDING(S) Ordered By: CARY PEREZ Interpreted By: Becki Clarke MD, 11/30/2023 10:12 AM Narrative 11/30/2023 10:16 AM CDT EXAMINATION: BILATERAL SCREENING MAMMOGRAPHY Exam Date: 11/30/2023 8:00 AM CLINICAL INDICATION: 52 years of age female routine screening. Reports 60 pound weight loss since last mammogram. Reports current use of HRT. COMPARISON: Screening mammogram(s) 08/27, 03/27, 03/26 TECHNIQUE: Digital CC & MLO views. Tomosynthesis imaging acquisition Study read with the assistance of a computer-aided detection system. TISSUE DENSITY: The breast tissue is heterogeneously dense, which may obscure small masses. FINDINGS: Compromised and suboptimal positioning attributed to body habitus with best possible images obtained and submitted for review as reported by the technologist. Please note current study positioning appears similar to recent prior exams. Scattered calcifications. Fairly stable glandular pattern with similar asymmetric dense nodular patches all relatively unchanged after accounting for differences in technique and weight fluctuations when compared to prior studies dating back 01/23 with areas demonstrating variable pliable appearance on repeat views. Within study constraints no suspicious grouping of microcalcifications, architectural distortion, or new dominant suspicious nodule 3 dimensionally demonstrated in either breast. us Cary Perez SALES SERVICE PROMOTER MAMMO Final Result * COLONOSCOPY (01/11/2019 1:26 PM CDT) Long Padilla MD GI PROCEDURE ORDERABLES Darlene small Result from Last 3 Months or Most Recently Relevant to Health Maintenance Insurance [employer] Care Teams Hoop Bender Tank Relationship Specialty [place] [address] [place] [address] [id number] PCP - General Nurse Practitioner Family 11/06/23 Qing Carrion PA-C PHYSICIAN TANK CLEANER 07/26/19 Lamonte Quezada MD [place] [employer] CARDIOVASCULAR DISEASE 07/02/20 Piper Sotomayor MD [facility] [address] [address] Consulting Physician Child and Adolescent Psychiatry 07/02/20
[2024-10-18 15:30] VITALS: BP 120/75; PULSE 80; RESP 20; O2SAT 94
== END 2024-10-18 15:30 | disposition home or self-care (01) ==
PROVIDERS: Emergency Provider Internal Medicine Critical Care Medicine
DX: J32.9 Chronic sinusitis, unspecified (principal); G43.909 Migraine, unspecified, not intractable, without status migrainosus; E78.5 Hyperlipidemia, unspecified; Z79.899 Other long term (current) drug therapy
CPT/HCPCS: 96372; 99283; J3030

== ENCOUNTER 2024-10-25 22:53 | Emergency (ER) | payer OTHER, SELFPAY ==
[2024-10-25 22:54] VITALS: BP 148/84; PULSE 78; RESP 18; TEMP 35.9; O2SAT 100
--- OUTSIDE RECORDS SUMMARY | 2024-10-25 22:55 | XMS_ITS | Clinical Summary ---
[facility] Address [address] [place] [phone] Care Team Providers Care Procedure Manager Name Role Phone Chen Thomason MD Primary Care Provider [phone] Allergies Active Allergy Reactions Criticality Noted Date Comments Ciprofloxacin Rash Medium 03/13/2020 Codeine Rash Medium 03/26/2017 Latex Rash Medium 04/20/2016 Metaxalone Unknown 10/18/2006 Nitrofurantoin Itching Medium 12/25/2019 Sulfa (Sulfonamide Antibiotics) Rash Medium 10/18/2006 Vancomycin Unknown,Other (See comments) Low 04/11/2012 [place] like veins were burning Venom-Honey Bee Anaphylaxis [...] on file 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
--- OUTSIDE RECORDS SUMMARY | 2024-10-25 22:55 | XMS_ITS | Referral Summary ---
Author Organization [facility] D Address [address] [place] [phone] Care Team Providers Care Sizing Machine And Drier Operator Name Role Phone Chen Thomason MD Primary Care Provider [phone] Allergies Active Allergy Reactions Criticality Noted Date Comments Ciprofloxacin Rash Medium 03/13/2020 Codeine Rash Medium 03/26/2017 Latex Rash Medium 04/20/2016 Metaxalone Unknown 10/18/2006 Nitrofurantoin Itching Medium 12/25/2019 Sulfa (Sulfonamide Antibiotics) Rash Medium 10/18/2006 Vancomycin Unknown,Other (See comments) Low 04/11/2012 [place] like veins were burning Venom-Honey Bee Anaphylaxis [...] on file 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
--- NOTE | 2024-10-25 23:03 | ED.ALLEREA ---
HPI - Allergic Reaction General Chief complaint: Allergic Reaction Stated complaint: alleric reaction Time Seen by Provider: 10/25/24 23:02 Source: patient Mode of arrival: ambulatory Limitations: no limitations History of Present Illness HPI narrative: 53-year-old female with a history of chronic sinusitis, migraine, dyslipidemia bipolar disorder, allergic reaction to multiple agents on EpiPen, recent sinus infection for which she took Z-Yanick and Claritin presents to the ED with a 1 day history of -- generalized rash with itching. The rash is present on eyelids face and upper extremity. The patient has not had any new medication. -- No throat swelling /shortness of breath /abdominal pain or lightheadedness. the patient has had extensive allergic testing. She has been prescribed EpiPen but has not used it recently. The patient has never been intubated or mechanically ventilated for a severe allergic reaction. MD complaint: allergic reaction Onset (ago): day(s) ( 1 day) Exposure: unknown Symptoms: rash and itching Treatment prior to arrival: none Previous Allergic Reaction History: prior ED visit(s) Related Data Home Medications ?Medication ?Instructions ?Recorded ?Confirmed ?Last Taken ?Type clonazepam 0.5 mg tablet (Klonopin) 0.5 mg PO TID PRN anxiety 10/18/24 10/18/24 Unknown History clonazepam 1 mg tablet (Klonopin) 1 mg PO DAILY 10/18/24 10/18/24 Unknown History duloxetine 60 mg capsule,delayed 120 mg PO DAILY 10/18/24 10/18/24 Unknown History release estradiol 0.1 mg/24 hr semiweekly 1 patch transdermal 2XW 10/18/24 10/18/24 Unknown History transdermal patch (Vivelle-Dot) ezetimibe 10 mg tablet 10 mg PO DAILY 10/18/24 10/18/24 Unknown History lamotrigine 150 mg tablet 150 mg PO BID 10/18/24 10/18/24 Unknown History (Lamictal) pravastatin 40 mg tablet 40 mg PO DAILY 10/18/24 10/18/24 Unknown History topiramate 100 mg tablet (Topamax) 100 mg PO DAILY 10/18/24 10/18/24 Unknown History Allergies Allergy/AdvReac Type Severity Reaction Status Date / Time ciprofloxacin Allergy Intermediate Rash Verified 10/18/24 14:13 vancomycin Allergy Intermediate burning Verified 10/18/24 14:13 acetaminophen (From Vicodin) Allergy Mild Rash Verified 10/18/24 14:13 codeine Allergy Mild rash Verified 10/18/24 14:13 hydrocodone (From Vicodin) Allergy Mild Rash Verified 10/18/24 14:13 latex Allergy Mild Rash Verified 10/18/24 14:13 Review of Systems Review of Systems: All systems reviewed & are unremarkable except as noted in HPI and below Constitutional: Constitutional: Reports as per HPI and Reports no additional constitutional complaints Eyes: Eyes: Reports as per HPI and Reports no additional eye complaints ENT: Reports system reviewed and no additional complaints, except as documented and Reports as per HPI Cardiovascular: Cardiovascular: Reports as per HPI and Reports no additional cardiovascular complaints Respiratory: Respiratory: Reports as per HPI and Reports no additional respiratory complaints Gastrointestinal: Gastrointestinal: Reports as per HPI and Reports no additional gastrointestinal complaints Genitourinary: Genitourinary: Reports no additional female genitourinary complaints and Reports as per HPI Musculoskeletal: Musculoskeletal: Reports no additional musculoskeletal complaints and Reports as per HPI Integumentary/Breasts: Comments: Generalized erythematous rash. None is noted on the front and the back of the chest and lower Neurologic: Reports system reviewed and no additional complaints, except as documented and Reports as per HPI Psychiatric: Psychiatric: Reports no additional psychiatric complaints and Reports as per HPI Endocrine: Endocrine: Reports no additional endocrine complaints and Reports as per HPI Hematologic/Lymphatic: Hematologic/Lymphatic: Reports no additional hematologic/lymphatic complaints and Reports as per HPI Allergic/Immunologic: Allergic/Immunologic: Reports no additional allergic/immunologic complaints and Reports as per HPI [facility] Past Medical History Medical History (Updated 10/26/24 @ 01:05 by Dong Moore MD) Allergic reaction Chronic sinusitis Dyslipidemia Bipolar 1 disorder Exam Narrative: blood pressure 148/84 with a pulse of 78. Oxygen saturation of 100% on room air. Afebri Const: General: no acute distress Nutritional Appearance: well nourished Orientation/consciousness: patient oriented x3 Limitations: no limitations HENMT: Head: normal to inspection Ears: external ears normal Face/Nose/Sinus: Normal external nose present Throat: posterior oropharynx normal Eyes: Conjunctivae: conjunctivae normal Pupils: Equal, round and reactive pupils present EOM: EOMs intact bilaterally Direct Ophthalmoscopy: no photophobia Neck: Neck: normal visual inspection, no lymphadenopathy and no meningeal signs Chest: Chest palpation & inspection: normal inspection of the chest Resp: Effort & Inspection: normal respiratory effort Auscultation: clear to auscultation bilaterally Cardio: Rate: regular rate Rhythm: regular rhythm GI: GI Palp: Yes Soft to palpation Auscultation: normal bowel sounds Other: No tenderness/rigidity / rebound. : General: Yes no CVA tenderness Back/Spine/Pelvis: Back: no CVA tenderness Skin: General skin exam: normal color Other: Multiple areas of erythematous rash measuring 3-4 cm on the face the shoulder and arms Neuro: General: patient oriented x3, moves all extremities, no meningeal signs, no focal motor deficits and CN's II-XI intact bilaterally Cranial nerves: Yes Nystagmus not present Speech: normal speech Gait exam (Neuro): Normal gait present Extrem: General: normal to inspection and no clubbing, cyanosis or edema Psych: Mental Status: mental status grossly normal Affect: normal affect Course Course Emergency Course: allergic reaction manifesting as erythematous itchy rash without any stridor, wheezing, abdominal pain hypotension. Patient has been observed for 1 hour and during her stay she has been hemodynamically stable and oxygenating well. No hoarseness. No shortness of breath /wheezing. No lightheadedness. the patient has very frequent allergic reactions and she has had multiple rounds of steroids. We decided to hold off steroid at this time. Advised her to return to the ED if she had any major allergic manifestation. Patient has a lifeline and she understands to alert the lifeline if she has hoarseness, shortness of breath, lightheadedness and abdominal pain. Vital Signs Vital signs: Vital Signs Temperature 35.9 C L 10/25/24 22:54 Pulse Rate 78 10/25/24 22:54 Respiratory Rate 18 10/25/24 22:54 Blood Pressure 148/84 H 10/25/24 22:54 Pulse Oximetry 100 10/25/24 22:54 Oxygen Delivery Room Air 10/25/24 22:54 Temperature 35.9 C L 10/25/24 22:54 Pulse Rate 51 L 10/25/24 23:50 Respiratory Rate 16 10/25/24 23:50 Blood Pressure 120/67 10/26/24 00:01 Pulse Oximetry 100 10/26/24 00:01 Oxygen Delivery Room Air 10/25/24 23:50 MDM - Allergic Reaction MDM Narrative Medical decision making narrative: Allergic dermatitis Differential Diagnosis Differential diagnosis: Likely allergic reaction, contact dermatitis and adverse reaction to drug Medical Records Attestation: I reviewed the patient's medical records. Lab Data Attestation: I reviewed the patient's lab results. Discharge Plan Discharge Clinical Impression: Allergic reaction Patient Disposition: Home Condition: Stable Instructions: Antibiotic Form, General Allergic Reaction (ED) Patient Language: Indonesian Prescriptions: New famotidine [Pepcid] 20 mg tablet 20 mg PO BID Qty: 10 0RF hydroxyzine HCl 25 mg tablet 25 mg PO TID PRN (Reason: itching) Qty: 10 0RF No Action pravastatin 40 mg tablet 40 mg PO DAILY ezetimibe 10 mg tablet 10 mg PO DAILY duloxetine 60 mg capsule,delayed release(DR/EC) 120 mg PO DAILY lamotrigine [Lamictal] 150 mg tablet 150 mg PO BID clonazepam [Klonopin] 1 mg tablet 1 mg PO DAILY clonazepam [Klonopin] 0.5 mg tablet 0.5 mg PO TID PRN (Reason: anxiety) topiramate [Topamax] 100 mg tablet 100 mg PO DAILY estradiol [Vivelle-Dot] 0.1 mg/24 hr patch semiweekly 1 patch transdermal 2XW Patient Comments: change on wednesday and Rx Instructions: apply 1 patch for 3 days alternating with 1 patch for 4 days each week for 3 wks per 4-wk cycle azithromycin [Zithromax] 250 mg tablet See Rx Instructions .ROUTE .COMPLEX Qty: 6 0RF Rx Instructions: For 250 mg dose pack: take 500 mg today (day 1), then 250 mg for 4 days (days 2-5) loratadine [Claritin] 10 mg tablet 10 mg PO DAILY Qty: 30 0RF Follow-up/Referrals: UNKNOWN,DOCTOR [Primary Care Provider] - Time of Disposition: 01:06
--- OUTSIDE RECORDS SUMMARY | 2024-10-25 23:30 | XMS_ITS | Referral Summary ---
Author Organization [facility] D Address [address] [place] [id number] Care Team Providers Care Print Finisher Name Role Phone Chen Thomason MD Primary Care Provider [phone] Allergies Active Allergy Reactions Criticality Noted Date Comments Ciprofloxacin Rash Medium 03/13/2020 Codeine Rash Medium 03/26/2017 Latex Rash Medium 04/20/2016 Metaxalone Unknown 10/18/2006 Nitrofurantoin Itching Medium 12/25/2019 Sulfa (Sulfonamide Antibiotics) Rash Medium 10/18/2006 Vancomycin Unknown,Other (See comments) Low 04/11/2012 [place] like veins were burning Venom-Honey Bee Anaphylaxis [...] on file 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
--- OUTSIDE RECORDS SUMMARY | 2024-10-25 23:30 | XMS_ITS | Clinical Summary ---
Author Organization [facility] D Address [address] [place] [id number] Care Team Providers Care Recenterer Name Role Phone Chen Thomason MD Primary Care Provider [phone] Allergies Active Allergy Reactions Criticality Noted Date Comments Ciprofloxacin Rash Medium 03/13/2020 Codeine Rash Medium 03/26/2017 Latex Rash Medium 04/20/2016 Metaxalone Unknown 10/18/2006 Nitrofurantoin Itching Medium 12/25/2019 Sulfa (Sulfonamide Antibiotics) Rash Medium 10/18/2006 Vancomycin Unknown,Other (See comments) Low 04/11/2012 [place] like veins were burning Venom-Honey Bee Anaphylaxis [...] on file 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
[2024-10-25] MEDS: methylPREDNISolone SOD SUCC 125 MG VIAL IM (23:35)
[2024-10-25] MEDS: FAMOTIDINE 20 MG TABLET PO (23:35)
[2024-10-25 23:50] VITALS: BP 133/69; PULSE 51; RESP 16; O2SAT 100
[2024-10-26 00:01] VITALS: BP 120/67; O2SAT 100
--- NOTE | 2024-10-26 01:01 | PC.NURSE ---
patient ambulatory to bathroom at this time. reports she is feeling improved and still has mild itching. VSS.
[2024-10-26] MEDS: diphenhydrAMINE HCl CAP 25 MG CAPSULE PO (01:19)
[2024-10-26 01:20] VITALS: BP 122/68; PULSE 63; RESP 18; TEMP 36.7; O2SAT 100
== END 2024-10-26 01:25 | disposition home or self-care (01) ==
PROVIDERS: Emergency Provider Internal Medicine Critical Care Medicine
DX: T78.40XA Allergy, unspecified, initial encounter (principal); X58.XXXA Exposure to other specified factors, initial encounter
CPT/HCPCS: 96372; 99283; A9270; J2919

== ENCOUNTER 2024-11-17 11:50 | Emergency (ER) | payer OTHER, SELFPAY ==
--- NOTE | ~2024-11-17 | CT_ITS ---
EXAMINATION: CT brain & sinus wo con DATE: 11/17/2024 12:24 INDICATION: Headache TECHNIQUE: Computed tomography (CT) of the head and sinuses was performed without intravenous contras t. Sagittal and coronal reconstructions were performed. The mA was adjusted according to patient size . Iterative reconstruction technique was employed. The dose-length product was 756.67 mGy-cm. COMPARISON: None FINDINGS: No acute intracranial hemorrhage, acute infarction or abnormal extra axial fluid collection. Ventricl es are normal and symmetric. No mass/mass effect. The orbitsare normal. Mastoid air cells and middle ear cavities are clear. Mild mucosal thickening in the bilateral ethmoid sinuses and minimal mucosal thickening in the bilate ral maxillary sinuses. Bilateral ostiomeatal units are patent without mucosal thickening. Right-sided spike extending laterally from the nasal septum which is bowed to the right and which parallels the contours of the turbinates. Olive bullosa of the left middle turbinate. Right-sided nasal spike. IMPRESSION: 1. Normal brain. No acute intracranial process. 2. Minimal to mild mucosal thickening in the bilateral ethmoid and maxillary sinuses with patent bila teral ostiomeatal units. Reviewed, dictated and finalized at location A. IMPRESSION: 1. Normal brain. No acute intracranial process. 2. Minimal to mild mucosal thickening in the bilateral ethmoid and maxillary si nuses with patent bilateral ostiomeatal units.
[2024-11-17 11:50] VITALS: BP 120/80; PULSE 90; RESP 18; TEMP 36.4; O2SAT 97
--- OUTSIDE RECORDS SUMMARY | 2024-11-17 11:59 | XMS_ITS | Referral Summary ---
Author Organization [facility] D Address [address] [place] [phone] Care Team Providers Care Laundry Housekeeping Aide Name Role Phone Chen Thomason MD Primary Care Provider [phone] Allergies Active Allergy Reactions Criticality Noted Date Comments Ciprofloxacin Rash Medium 03/13/2020 Codeine Rash Medium 03/26/2017 Latex Rash Medium 04/20/2016 Metaxalone Unknown 10/18/2006 Nitrofurantoin Itching Medium 12/25/2019 Sulfa (Sulfonamide Antibiotics) Rash Medium 10/18/2006 Vancomycin Unknown,Other (See comments) Low 04/11/2012 [place] like veins were burning Venom-Honey Bee Anaphylaxis [...] on file 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 Gender Identity Not on file Sexual Orientation Not on file Last Filed Vital Signs Vital Sign Reading Time Taken Comments Blood Pressure 120/73 12/21/2023 1:06 PM CDT Pulse - - Temperature - - Respiratory Rate - - Oxygen Saturation - - Inhaled Oxygen Concentration - - Weight 89.9 kg (198 lb 3.2 oz) 12/21/2023 1:06 P M CDT Height 162.6 cm (5' 4) 12/21/2023 1:06 PM CDT Body Mass Index 34.02 12/21/2023 1:06 PM CDT Plan of Treatment Not on file Insurance [facility] Care Teams Laundry Housekeeping Aide Relationship Specialty Start Date End Date Chen Thomason MD [address] [address] PCP - General Obstetrics and Gynecology 08/13/23
--- OUTSIDE RECORDS SUMMARY | 2024-11-17 11:59 | XMS_ITS | Clinical Summary ---
Author Organization [facility] D Address [address] [place] [id number] Care Team Providers Care Academic Coordinator Name Role Phone Chen Thomason MD Primary Care Provider [phone] Allergies Active Allergy Reactions Criticality Noted Date Comments Ciprofloxacin Rash Medium 03/13/2020 Codeine Rash Medium 03/26/2017 Latex Rash Medium 04/20/2016 Metaxalone Unknown 10/18/2006 Nitrofurantoin Itching Medium 12/25/2019 Sulfa (Sulfonamide Antibiotics) Rash Medium 10/18/2006 Vancomycin Unknown,Other (See comments) Low 04/11/2012 [place] like veins were burning Venom-Honey Bee Anaphylaxis [...] on file 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 Gender Identity Not on file Sexual Orientation [...] 04/09/2014 Zoster Vaccine (1 of 2) 2018 Breast Cancer Screening-Mammogram 11/29/2024 11/30/2023, 11/30/2023, 08/06/2022, Additional history exists Influenza Vaccine (Season Ended) 2025 04/15/2021, 03/11/2020, 01/26/2020, Additional history exists DTaP/Tdap/Td Vaccine (2 - Td or Tdap) 09/24/2029 09/25/2019, 04/09/2019 Insurance [facility] HMO/PPO Address: [facility] [address] [place] [address] Care Teams Academic Coordinator Relationship Specialty Start Date End Date Chen Thomason MD [address] [address] PCP - General Obstetrics and Gynecology 08/13/23
--- NOTE | 2024-11-17 12:00 | ED.HA ---
HPI - Headache General Chief Complaint: Headache Stated Complaint: multiple medical complaints Time Seen by Provider: 11/17/24 11:57 Source: patient Mode of arrival: ambulatory Limitations: no limitations History of Present Illness HPI Narrative: 48 old female with a history of chronic sinusitis, migraine, dyslipidemia, bipolar, presents to the ED with 5 day history of -- frontal and retro-orbital headache with nausea/ vomiting, visual changes and visual changes. She has photophobia. No fever. No focal neuro deficits. Patient is on Topamax without any improvement. Headache is similar to her usual headache. -- Nasal congestion with nasal discharge which is purulent. MD elicited complaint: headache Onset (ago): day(s) ( Five days) Onset description: gradually Location: frontal and retro-orbital Severity: moderate Quality & Timing: aching, throbbing and similar to previous headaches Exacerbating factors: none Relieving factors: nothing Context: occurred at rest Associated symptoms: nausea, vomiting and photophobia Treatments prior to arrival: other ( Topamax) Related Data Home Medications ?Medication ?Instructions ?Recorded ?Confirmed ?Last Taken ?Type clonazepam 0.5 mg tablet (Klonopin) 0.5 mg PO TID PRN anxiety 10/18/24 10/18/24 Unknown History clonazepam 1 mg tablet (Klonopin) 1 mg PO DAILY 10/18/24 10/18/24 Unknown History duloxetine 60 mg capsule,delayed 120 mg PO DAILY 10/18/24 10/18/24 Unknown History release estradiol 0.1 mg/24 hr semiweekly 1 patch transdermal 2XW 10/18/24 10/18/24 Unknown History transdermal patch (Vivelle-Dot) ezetimibe 10 mg tablet 10 mg PO DAILY 10/18/24 10/18/24 Unknown History lamotrigine 150 mg tablet 150 mg PO BID 10/18/24 10/18/24 Unknown History (Lamictal) pravastatin 40 mg tablet 40 mg PO DAILY 10/18/24 10/18/24 Unknown History topiramate 100 mg tablet (Topamax) 100 mg PO DAILY 10/18/24 10/18/24 Unknown History Allergies Allergy/AdvReac Type Severity Reaction Status Date / Time ciprofloxacin Allergy Intermediate Rash Verified 11/17/24 12:07 vancomycin Allergy Intermediate burning Verified 11/17/24 12:07 acetaminophen (From Vicodin) Allergy Mild Rash Verified 11/17/24 12:07 codeine Allergy Mild rash Verified 11/17/24 12:07 hydrocodone (From Vicodin) Allergy Mild Rash Verified 11/17/24 12:07 latex Allergy Mild Rash Verified 11/17/24 12:07 Review of Systems Review of Systems: All systems reviewed & are unremarkable except as noted in HPI and below Constitutional: Constitutional: Reports as per HPI and Reports no additional constitutional complaints Eyes: Eyes: Reports as per HPI, Reports no additional eye complaints and Reports photophobia ENT: Reports system reviewed and no additional complaints, except as documented and Reports as per HPI Cardiovascular: Cardiovascular: Reports as per HPI and Reports no additional cardiovascular complaints Respiratory: Respiratory: Reports as per HPI and Reports no additional respiratory complaints Gastrointestinal: Gastrointestinal: Reports as per HPI and Reports no additional gastrointestinal complaints Genitourinary: Genitourinary: Reports no additional female genitourinary complaints and Reports as per HPI Musculoskeletal: Musculoskeletal: Reports no additional musculoskeletal complaints and Reports as per HPI Integumentary/Breasts: Skin/Breast: Reports system reviewed and no additional complaints, except as docu and Reports as per HPI Comments: facial erythema with scaling of the skin over the forehead and nose post sun exposure Neurologic: Reports system reviewed and no additional complaints, except as documented, Reports as per HPI and Reports headache(s) Psychiatric: Psychiatric: Reports no additional psychiatric complaints, Reports as per HPI and Reports depression Endocrine: Endocrine: Reports no additional endocrine complaints and Reports as per HPI Hematologic/Lymphatic: Hematologic/Lymphatic: Reports no additional hematologic/lymphatic complaints and Reports as per HPI Allergic/Immunologic: Allergic/Immunologic: Reports no additional allergic/immunologic complaints and Reports as per HPI PMFSH Past Medical History Medical History Allergic reaction Chronic sinusitis Dyslipidemia Bipolar 1 disorder Exam Const: General: healthy appearing Nutritional Appearance: well nourished Orientation/consciousness: patient oriented x3 Limitations: no limitations HENMT: Head: normal to inspection Ears: external ears normal Face/Nose/Sinus: Normal external nose present Mouth: Yes Normal oral and palatal mucosa present Throat: posterior oropharynx normal Eyes: Conjunctivae: conjunctivae normal Pupils: Equal, round and reactive pupils present EOM: EOMs intact bilaterally Direct Ophthalmoscopy: no photophobia Neck: Neck: normal visual inspection, no lymphadenopathy and no meningeal signs Chest: Chest palpation & inspection: normal inspection of the chest Resp: Effort & Inspection: normal respiratory effort Auscultation: clear to auscultation bilaterally Cardio: Rate: regular rate Rhythm: regular rhythm GI: GI Palp: Yes Soft to palpation Auscultation: normal bowel sounds Other: tenderness/rigidity / rebound. : General: Yes no CVA tenderness Back/Spine/Pelvis: Back: no CVA tenderness Skin: General skin exam: normal color Other: Forehead and nasal erythematous rash with scaling which happened after prolonged sun expo Neuro: General: patient oriented x3, moves all extremities, no meningeal signs, no focal motor deficits and CN's II-XI intact bilaterally Cranial nerves: Yes Nystagmus not present Speech: normal speech Extrem: General: normal to inspection and no clubbing, cyanosis or edema Psych: Mental Status: mental status grossly normal Affect: normal affect and Anxious affect present Course Course Emergency Course: sunburn sinusitis- will treat with Augmentin 875 and Claritin migraine headache-- CT of the head did not show any acute intracranial findings. He is noted to have a model and maxillary mucosal thickening . He has a patent ostiomeatal duct will give Toradol 30 IM and Zofran p.o. Vital Signs Vital signs: Vital Signs Temperature 36.4 C L 11/17/24 11:50 Pulse Rate 90 11/17/24 11:50 Respiratory Rate 18 11/17/24 11:50 Blood Pressure 120/80 11/17/24 11:50 Pulse Oximetry 97 11/17/24 11:50 Oxygen Delivery Room Air 11/17/24 11:50 Temperature 36.4 C L 11/17/24 11:50 Pulse Rate 90 11/17/24 11:50 Respiratory Rate 18 11/17/24 11:50 Blood Pressure 120/80 11/17/24 11:50 Pulse Oximetry 97 11/17/24 11:50 Oxygen Delivery Room Air 11/17/24 12:08 MDM - Headache MDM Narrative Medical decision making narrative: sunburn sinusitis migraine headache Differential Diagnosis Differential diagnosis: Likely tension headache and subarachnoid hemorrhage Medical Records Attestation: I reviewed the patient's medical records. Lab Data Attestation: I reviewed the patient's lab results. Discharge Plan Discharge Clinical Impression: Sunburn Headache Qualifiers: Headache type: unspecified Headache chronicity pattern: chronic headache Intractability: not intractable Qualified Code(s): R51.9 - Headache, unspecified Migraine Qualifiers: Migraine type: unspecified Status migrainosus presence: without status migrainosus Intractability: not intractable Qualified Code(s): G43.909 - Migraine, unspecified, not intractable, without status migrainosus Sinusitis Qualifiers: Sinusitis location: maxillary Chronicity: acute Recurrence: recurrent Qualified Code(s): J01.01 - Acute recurrent maxillary sinusitis Patient Disposition: Home Condition: Stable Instructions: Antibiotic Form, Sinusitis (ED), Sunburn (ED), Migraine Headache (ED) Patient Language: Polish Prescriptions: New amoxicillin-pot clavulanate 875-125 mg tablet 1 tablet PO Q12H Qty: 14 0RF No Action pravastatin 40 mg tablet 40 mg PO DAILY ezetimibe 10 mg tablet 10 mg PO DAILY duloxetine 60 mg capsule,delayed release(DR/EC) 120 mg PO DAILY lamotrigine [Lamictal] 150 mg tablet 150 mg PO BID clonazepam [Klonopin] 1 mg tablet 1 mg PO DAILY clonazepam [Klonopin] 0.5 mg tablet 0.5 mg PO TID PRN (Reason: anxiety) topiramate [Topamax] 100 mg tablet 100 mg PO DAILY estradiol [Vivelle-Dot] 0.1 mg/24 hr patch semiweekly 1 patch transdermal 2XW Patient Comments: change on wednesday and Rx Instructions: apply 1 patch for 3 days alternating with 1 patch for 4 days each week for 3 wks per 4-wk cycle azithromycin [Zithromax] 250 mg tablet See Rx Instructions .ROUTE .COMPLEX Qty: 6 0RF Rx Instructions: For 250 mg dose pack: take 500 mg today (day 1), then 250 mg for 4 days (days 2-5) loratadine [Claritin] 10 mg tablet 10 mg PO DAILY Qty: 30 0RF hydroxyzine HCl 25 mg tablet 25 mg PO TID PRN (Reason: itching) Qty: 10 0RF famotidine [Pepcid] 20 mg tablet 20 mg PO BID Qty: 10 0RF Follow-up/Referrals: UNKNOWN,DOCTOR [Primary Care Provider] -
--- OUTSIDE RECORDS SUMMARY | 2024-11-17 12:22 | XMS_ITS | Clinical Summary ---
Author Organization [facility] D Address [address] [place] [phone] Care Team Providers Care Res Counselor Name Role Phone Chen Thomason MD Primary Care Provider [phone] Allergies Active Allergy Reactions Criticality Noted Date Comments Ciprofloxacin Rash Medium 03/13/2020 Codeine Rash Medium 03/26/2017 Latex Rash Medium 04/20/2016 Metaxalone Unknown 10/18/2006 Nitrofurantoin Itching Medium 12/25/2019 Sulfa (Sulfonamide Antibiotics) Rash Medium 10/18/2006 Vancomycin Unknown,Other (See comments) Low 04/11/2012 [place] like veins were burning Venom-Honey Bee Anaphylaxis [...] on file 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
--- OUTSIDE RECORDS SUMMARY | 2024-11-17 12:22 | XMS_ITS | Referral Summary ---
Author Organization [facility] D Address [address] [place] [id number] Care Team Providers Care Crayon Painter Name Role Phone Chen Thomason MD Primary Care Provider [phone] Allergies Active Allergy Reactions Criticality Noted Date Comments Ciprofloxacin Rash Medium 03/13/2020 Codeine Rash Medium 03/26/2017 Latex Rash Medium 04/20/2016 Metaxalone Unknown 10/18/2006 Nitrofurantoin Itching Medium 12/25/2019 Sulfa (Sulfonamide Antibiotics) Rash Medium 10/18/2006 Vancomycin Unknown,Other (See comments) Low 04/11/2012 Jewett like veins were burning Venom-Honey Bee Anaphylaxis [...] on file 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
--- NOTE | 2024-11-17 12:53 | PC.NURSE ---
AFTAB Moore at patient bedside at this time providing patient update on results of imaging.
[2024-11-17] MEDS: KETOROLAC 30 MG/ML VIAL (*BKC) IM (13:07)
[2024-11-17] MEDS: ONDANSETRON HCL ODT 4 MG TABLET PO (13:07)
[2024-11-17 13:12] VITALS: BP 121/89; PULSE 60; RESP 18; TEMP 36.7; O2SAT 99
== END 2024-11-17 13:19 | disposition home or self-care (01) ==
PROVIDERS: Emergency Provider Internal Medicine Critical Care Medicine
DX: G43.909 Migraine, unspecified, not intractable, without status migrainosus (principal); J01.01 Acute recurrent maxillary sinusitis; L55.9 Sunburn, unspecified
CPT/HCPCS: 70450; 70486; 96372; 99284; A9270; J1885